=== PATIENT | female | born 1990 | race Two or more races ===

== ENCOUNTER 2017-01-16 11:33 | Emergency (ER) | payer OTHER ==
[~2017-01-16] VITALS: Ht 167.6 cm; Wt 78.0 kg
[2017-01-16 11:40] VITALS: BP 111/70
== END 2017-01-16 12:31 | disposition home or self-care (01) ==
LOC: ER 11:38
DX: F29 Unspecified psychosis not due to a substance or known physiological condition (principal); Z59.0 Homelessness
CPT/HCPCS: 99281; A4606; Z7610; Z7502